=== PATIENT | male | born 1965 | race Caucasian/White ===

== ENCOUNTER 2019-08-26 17:33 | Emergency (ER) | payer MEDICARE, MEDICAID ==
--- OUTSIDE RECORDS SUMMARY | 2019-08-26 18:25 | XMS REPORT | Continuity of Care Document ---
:1965 External Reference #:[id number] Author Name Jesus Santizo MD (transmitted by agent of provider Arianna Staton) Address [address] [place] [id number] Care Team Providers Name Role Phone Mary Alice Cho MD - Adolescent Care Team Information Press Box Custodian Medicine Problems Active Problems Provider Date Dyspnea Marvin Zamorano M.D., [facility], Onset: 09/14/2013 FAS[facility] Conduction disorder of the heart Marvin Zamorano M.D., [facility], Onset: 2014 FASNC Difficulty breathing Marvin Zamorano M.D., [facility], Onset: 01/09/2015 FASNC Chest pain Marvin Zamorano M.D., [facility], Onset: 01/11/2016 FASNC Obstructive sleep apnea syndrome Stephanie Egan MD Onset: 12/13/2016 Obesity Stephanie Egan MD Onset: 12/13/2016 Malaise and fatigue Marvin Zamorano M.D., [facility], Onset: 03/04/2017 FASNC Pain in calf Kisha Holder DNP, RN, Onset: 01/20/2018 [facility] Atherosclerotic heart disease of Marvin Zamorano M.D., [facility], Onset: 2017 [place] coronary artery without angina FASNC pectoris Social History Type Date Description Comments Sex Unknown Tobacco Use Start: Unknown Never Smoked Cigarettes Smoking Status Reviewed: 07/09/19 Never Smoked Cigarettes ETOH Use Denies alcohol use Tobacco Use Start: Unknown Patient has never smoked Recreational Drug Use Denies Drug Use Exercise Type/Frequency Exercises regularly Exercise Type/Frequency Walks daily Dogs Allergies, Adverse Reactions, Alerts Active Allergies Reaction Severity Comments Date Penicillin Hives 09/14/2013 Iodine rash 09/14/2013 Testosterone Hives 05/12/2019 Keflex Hives 05/12/2019 Medications Active Medications SIG Qnty Indications Ordering Provider Date Aspir-81 1 by mouth every Marvin Zamorano, 01/09/2015 81mg Tablets day Am ZACK Proctor FASNC DR Fenofibrate 1 po qd 90tabs Mary Alice Cho, 54mg MD Tablets Simvastatin 1 po qhs 90tabs Mary Alice Cho, 10mg MD Tablets Vit C 1 tablet po daily Unknown 500mg Am Metformin HCL 1 po once daily 60tabs Mary Alice Cho, 500mg with meal MD Tablets Cpap as directed used Unknown Device during the night for severe sleep apnea Atenolol 1/2 tab by mouth Mary Alice Cho, 50mg Tablets every day Tamsulosin HCL 1 daily Dom River, 0.4mg MD Capsules Lisinopril 1 by mouth every Unknown 20mg Tablets day Vitamin B Complex 1 by mouth every Unknown day Tablets Freestyle Lite Test test blood sugar Unknown 3 times daily and Strips as needed Freestyle Lancets 2 times daily and Unknown Misc as needed Medications Administered in Office Medication SIG Qnty Indications Ordering Provider Date Depomedrol 40MG Bernadette Yip PA-C 01/29/2017 Injection Technetium TC 99M Marvin Zamorano M.D., 10/07/2016 Tetrofosmin, Per Unit Dose ROMULO DIXON Up To 40 Millicuries Injection Depomedrol 40MG Anibal Nguyen M.D. 08/05/2016 Injection Depomedrol 40MG Anibal Nguyen M.D. 04/17/2016 Injection Depomedrol 40MG Anibal Nguyen M.D. 12/13/2015 Injection Technetium TC 99M Marvin Zamorano M.D., 01/02/2015 Tetrofosmin, Per Unit Dose ROMULO DIXON Up To 40 Millicuries Injection Immunizations Description No Information Available Vital Signs Date Vital Result Comment 07/09/2019 9:26am Height 68 inches 5'8" Weight 225.00 lb w/o shoes Heart Rate 73 /min BP Systolic Sitting 139 mmHg BP Diastolic Sitting 91 mmHg BMI (Body Mass Index) 34.2 kg/m2 05/12/2019 9:39am Height 68 inches 5'8" Weight 224.00 lb with shoes Heart Rate 62 /min BP Systolic Sitting 112 mmHg lue reg cuff BP Diastolic Sitting 64 mmHg lue reg cuff BP Systolic Standing 112 mmHg lue reg cuff BP Diastolic Standing 62 mmHg lue reg cuff Respiratory Rate 12 /min BMI (Body Mass Index) 34.1 kg/m2 Ejection Fraction 55-60% echo 09/24/16 Results Description No Information Available Procedures Date Code Description Status 02/02/2019 11849 EEG Recording Awake & Asleep Completed Medical Devices Description No Information Available Encounters Type Date Location Provider Dx Diagnosis Office Visit 05/12/2019 [facility] Marvin Nogueira I25.10 Athscl heart 10:00a Of Kareem Zamorano M.D., disease of [place] FAC, FASNC coronary artery w/o ang pctrs Office Visit 05/11/2019 [facility] Kisha Holder, G47.33 Obstructive sleep 10:00a [facility], ASSISTANT PROFESSOR OF ART- apnea (adult) [facility] (pediatric) Z72.821 Inadequate sleep hygiene Office Visit 02/16/2019 [facility]monology And Kisha G47.33 Obstructive sleep 9:45a [facility] Holder, CB, apnea (adult) [facility] ASSISTANT PROFESSOR OF ART-ONEL (pediatric) Z72.821 Inadequate sleep hygiene R53.83 Other fatigue Assessments Date Code Description Provider 07/09/2019 E29.1 Testicular hypofunction Jesus Santizo MD 07/09/2019 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 Jesus Santizo MD 07/09/2019 Z68.34 Body mass index (BMI) 34.0-34.9, Jesus Santizo MD adult 05/12/2019 I25.10 Atherosclerotic heart disease of Marvin Zamorano M.D., FACC, [place] coronary artery with FASNC 05/11/2019 G47.33 Obstructive sleep apnea (adult) Kisha Holder DNP, RN, (pediatric) MIS 05/11/2019 Z72.821 Inadequate sleep hygiene Kisha Holder DNP, RN, ASSISTANT PROFESSOR OF ART- 02/16/2019 G47.33 Obstructive sleep apnea (adult) Kisha Holder DNP RN, (pediatric) ASSISTANT PROFESSOR OF ART-ONEL 02/16/2019 Z72.821 Inadequate sleep hygiene Kisha Holder DNP, RN, ASSISTANT PROFESSOR OF ART-BC 02/16/2019 R53.83 Other fatigue Kisha Holder DNP, RN, ASSISTANT PROFESSOR OF ART-ONEL 02/02/2019 R53.83 Other fatigue Waldo Xie M.D. Plan of Treatment Future Appointment(s):08/10/2019 9:15 am - Kisha Holder DNP, RN, [facility]- at [facility]07/09/2019 - Jesus Santizo MDE29.1 Testicular hypofunctionInstructions:1. Do not use testosterone in the future. 2. Collect urine for 24 hours and return to lab. 3. Returnto lab at 8AM for fasting blood tests. 4. No need for further evaluation if the urine and blood tests are normal.L90.6 Striae adctluacrnE30.34 Body mass index (BMI) 34.0-34.9, adult Functional Status Description No Information Available Mental Status Description No Information Available Referrals Description No Information Available
--- OUTSIDE RECORDS SUMMARY | 2019-08-26 18:25 | XMS REPORT | Summary of Care ---
:1965 Author Organization [facility] Address [address] [place] [address] Care Team Providers Name Role Phone Mary Alice Cho MD Primary Care Provider Reason for Visit Reason Comments Procedure fusion bx Encounter Details Date Type Department Care Team Description 08/26/2019 Procedure visit [facility] Kike Brown, [facility] [address] [facility] [address] [place], [place] [address] [id number] [place] [address] [phone] Allergies Active Allergy Reactions Severity Noted Date Comments Iodine-Methyl Salicylate Rash Low 08/26/2019 Penicillins Rash Low 08/26/2019 documented as of this encounter (statuses as of 08/26/2019) Medications Medication Sig Dispensed Refills Start Date End Date Status Vitamin C 500 MG Oral Take 500 mg by 0 Active Tablet (ASCORBIC ACID) mouth Aspirin 81 MG Oral Chew 81 mg by 0 Active Tablet Chewable Mouth Atenolol 25 MG Oral Take 25 mg by 0 Active Tablet (TENORMIN) mouth busPIRone HCl 10 MG Take 10 mg by 0 Active Oral Tablet (BUSPAR) mouth Doxycycline Hyclate TAKE TWO CAPSULES 0 08/19/2019 Active 100 MG Oral Capsule BY MOUTH A (VIBRAMYCIN) SINGLE DOSE Fenofibrate 40 MG Oral Take by mouth 0 Active Tablet Furosemide 20 MG Oral 0 08/03/2019 Active Tablet (LASIX) Lisinopril 10 MG Oral 0 11/24/2018 Active Tablet (PRINIVIL,ZESTRIL) metFORMIN HCl 500 MG 0 10/30/2012 Active Oral Tablet (GLUCOPHAGE) Simvastatin 10 MG Oral 0 08/28/2012 Active Tablet (ZOCOR) Tamsulosin HCl 0.4 MG Take 0.4 mg by 3 06/17/2019 Active Oral Capsule (FLOMAX) mouth daily Vitamin B-12 100 MCG Take 50 mcg by 0 Active Oral Tablet mouth daily (CYANOCOBALAMIN) Hospital, Clinic, or Ordered Dose Route Frequency Start Date End Date Status Other Facility Administered Medication lidocaine 20 mL UR Once 08/26/2019 08/26/2019 Ended (XYLOCAINE) 2 % urojet 20 mL lidocaine 10 mL INFILTRATION Once 08/26/2019 08/26/2019 Ended (XYLOCAINE) 1 % injection 10 mL gentamicin 80 mg IM Once 08/26/2019 08/26/2019 Ended (GARAMYCIN) injection 80 mg documented as of this encounter (statuses as of 08/26/2019) Active Problems Problem Noted Date Kidney stone Elevated PSA documented as of this encounter (statuses as of 08/26/2019) Social History Tobacco Use Types Packs/Day Years Used Date Never Smoker 0 Smokeless Tobacco: Never Used Alcohol Use Drinks/Week oz/Week Comments Never Alcohol Habits Answer Date Recorded How often do you have a drink containing alcohol? Never 08/26/2019 How many drinks containing alcohol do you have on a typical Not asked day when you are drinking? How often do you have six or more drinks on one occasion? Not asked Sex Assigned at Date Recorded Not on file Job Start Date Occupation Industry Not on file Not on file Not on file Travel History Travel Start Travel End No recent travel history available. documented as of this encounter Last Filed Vital Signs Not on filedocumented in this encounter Patient Instructions Patient InstructionsSharon Amato RN - 08/26/2019 1:00 PM ESTPatient Discharge Instructions for TRUS Biopsy of the prostate Joao You may experience slight bleeding, bleeding with urination or blood in your semen after the biopsy. Blood may be noted in your semen for a few months. You may have some discomfort after the biopsy. This discomfort should decrease by taking Acetaminophen (Tylenol) 325 mg. Take 2 tablets by mouth every 4 hours as needed for discomfort or pain. What should I do? * Rest at home this evening. * Take the antibiotic prescribed for you. * Drink 2 quarts of non alcoholic beverages for 24 hours or until your urine is clear. * Continue your regular diet * Resume your normal medications, except: Do not resume blood thinners for 3 days after the biopsy such as warfarin (Coumadin), Lovenox, or aspirin, Bufferin , Anacin or Excedrin. Refrain from takingnon steroidal medications such as Motrin, Advil, Nuprin, Naprosyn, Aleve or Celebrex for 3 days after the procedure. * No strenuous activity or heavy lifting for 3 days. Activities include: jogging, bowling, tennis, golf, cycling, racquetball, lawn mowing or snow shoveling. * Abstain from sexual activity for 3 days (72 hours) * Do Not strain to move your bowels or use suppositories for 48 hours. Please call the Urology office at [phone] (option 3), to speak to a nurse if: * You have severe pain not controlled by Acetaminophen (Tylenol) * You have persistent passage of blood in your urine or bowel movements. * You develop fever of 100 degrees F or higher or shaking/chills. * You have any difficulty urinating, such as decreased slow urinary stream, burning, frequency, urgency, hesitancy, or the inability to urinate. Returning to work, before you leave today please discuss with the Any restrictions you may have,as each case is individualized. * In case of emergency, immediately go to your nearest Emergency Room * Make sure to follow up in the Urology clinic as you were directed * We ask that you bring a family member with you for the results. Joao verbalized understanding of all discharge instructions Your provider for this treatment was Sharon Amato RN If you have any questions please do not hesitate to call us! Reviewed - 03/2018 documented in this encounter Progress Notes Kike Brown MD - 08/26/2019 1:00 PM ESTProcedure: MRI/Ultrasound fusion transrectal ultrasound prostate biopsy Preoperative diagnosis: Elevated PSA, prior negative biopsy Postoperative diagnosis: Elevated PSA, prior negative biopsy Surgeon: Dr. Brown Anesthesia: 10 ml of 1% lidocaine solution Specimen: Biopsy cores submitted to pathology Procedure description: After informed consent was obtained the patient was brought into the procedure. Periprocedural antibiotics were given. He was placed left side down on the biopsy table in the lateral decubitus position. All pressure points were padded. Lidocaine jelly was applied transrectally. The ultrasound probe was placed in the rectum. There were no areas of calcifications noted. There were no other abnormalities. The ultrasound probe was then positioned to image prostate in the axial plane sweeping from the seminal vesicles to thebase, mid, and apical portions of the prostate. This rendered a three-dimensional image that was coregistered with the BracletNaGoojet prostate biopsy system. Volume: 78.8 cc At this point a periprosthetic block was performed using a 22-gauge spinal needle, ultrasound guidance, and 1% lidocaine. 5mL were injected into the right side and 5 mL on the left side. Using an 18-gauge biopsy gun a prostate needle core biopsy was taken and labeled in the axial and sagittal planefrom 3 lesions in the 3 corresponding to areas suspicious on magnetic resonance imaging. These werelabeled MR Target 1-3 respectively. (two of these were read here, and one was NIH reviewed). A 12-core systematic sample was then taken from the following locations: Right base lateral, right base medial, right midlateral, right midmedial, right apex lateral, right apex medial, left base lateral, left base medial, left midlateral , left midmedial, left apex lateral, left apex medial. There was minimal bleeding. All specimens were sent to the pathology. The probe was removed. The patient tolerated the procedurewell. documented in this encounter Plan of Treatment Health Maintenance Due Date Last Done Comments MMR Vaccines (1 of - Standard 1966 series) Pneumococcal Vaccine: Pediatrics 1971 (0 to 5 Years) and At-Risk Patients (6 to 64 Years) (1 of 3 - PCV13) DTaP,Tdap,and Td Vaccines ( - 1972 Tdap) HIV Screening 1978 Hepatitis B Vaccines (1 of 3 - 1984 Risk 3-dose series) Colon Cancer Screening 10 yrs 2015 Influenza Vaccine 07/20/2019 Pneumococcal Vaccine: 65+ Years (1 2030 of 2 - PCV13) HIB Vaccines Aged Out No longer eligible based on patient's age to complete this topic Hepatitis A Vaccines Aged Out No longer eligible based on patient's age to complete this topic IPV Vaccines Aged Out No longer eligible based on patient's age to complete this topic Varicella Vaccines Aged Out No longer eligible based on patient's age to complete this topic documented as of this encounter Results Not on filedocumented in this encounter Visit Diagnoses Diagnosis Elevated PSA - Primary Elevated prostate specific antigen (PSA) documented in this encounter Administered Medications Medication Order MAR Action Action Date Dose Rate Site gentamicin (GARAMYCIN) injection Given 08/26/2019 12:48 PM EST 80 mg 80 mg 80 mg, Intramuscular, Once, Christi 08/26/19 at 1230, For 1 dose lidocaine (XYLOCAINE) 1 % injection 10 mL Given 08/26/2019 1:24 PM EST 10 mLs 10 mL, Infiltration, Once, Christi 08/26/19 at 1230, For 1 dose lidocaine (XYLOCAINE) 2 % urojet 20 mL Given 08/26/2019 12:49 PM EST 20 mLs 20 mL, Urethral, Once, Christi 08/26/19 at 1230, For 1 dose documented in this encounter
--- NOTE | 2019-08-26 20:39 | ED ---
GI/ HPI - HPI Summary HPI Summary: The patient is a 53 y/o M presenting to [facility] accompanied by with a chief complaint of rectal bleeding with BMs today starting after 1330. He reports that he was just discharged from [facility] urology after having 18 biopsies of his prostate following an elevated PSA. Since being discharged, he has had five BMs with bleeding from the rectum. He additionally c/o nausea which is aggravated with passing stool. His symptoms are now rated 10/10 in severity. He notes that he had a SBO recently. He is currently concerned for an infection from the biopsies. He states that he also has a tick on the right upper arm which he must have gotten some time today after being discharged. His urologist at [facility] is Dr. Brown, and his urologist in [place] is Dr. River. PMHx: DM, cardiomegaly, CAD, HTN, HLD. Nonsmoker, no EtOH, no substance use. Medications reviewed. Allergies noted. - History of Current Complaint Chief Complaint: EDRectalPain Time Seen by Provider: 08/26/19 20:22 Stated Complaint: RECTUM BLEEDING PER PT Hx Obtained From: Patient Onset/Duration: Started Hours Ago - at 1330, Still Present Timing: Lasting Hours Severity: Moderate Current Severity: Severe Pain Intensity: 10 Location of Pain: Rectal Associated Signs and Symptoms: Positive: Nausea - Allergy/Home Medications Allergies/Adverse Reactions: Allergies Allergy/AdvReac Type Severity Reaction Status Date / Time testosterone Allergy Hives Verified 08/26/19 20:21 iodine AdvReac Rash Verified 08/26/19 17:38 Penicillins AdvReac GI Upset Verified 08/26/19 17:38 Home Medications: Home Medications Acetaminophen [Acetaminophen Extra Strength] 1,000 mg PO Q6HR PRN 08/26/19 [ History Confirmed 08/26/19] Atenolol TAB* [Tenormin TAB* 50 MG] 25 mg PO DAILY 08/26/19 [History Confirmed 08/26/19] Fenofibrate [Tricor] 54 mg PO DAILY WITH MEAL 08/26/19 [History Confirmed ] Furosemide TAB* [Lasix TAB*] 20 mg PO DAILY 08/26/19 [History Confirmed 08/26/19 ] Lisinopril TAB* [Prinivil TAB*] 20 mg PO DAILY 08/26/19 [History Confirmed 08/26] Simvastatin TAB(NF) [Zocor(NF)] 10 mg PO DAILY 08/26/19 [History Confirmed 08/26] Tamsulosin CAP* [Flomax CAP*] 0.4 mg PO DAILY 08/26/19 [History Confirmed ] PMH/Surg Hx/FS Hx/Imm Hx Endocrine/Hematology History: Reports: Hx Diabetes - TYPE II- ON ORAL MEDICATION FOR Cardiovascular History: Reports: Hx Cardiomegaly - DR. RODRIGUES FOLLOWS, Hx Coronary Artery Disease, Hx Hypercholesterolemia, Hx Hypertension - ON MEDICATION FOR Denies: Hx Pacemaker/ICD Respiratory History: Reports: Hx Sleep Apnea History: Denies: Hx Renal Disease Musculoskeletal History: Reports: Hx Arthritis - BACK Sensory History: Reports: Hx Contacts or Glasses - GLASSES Denies: Hx Hearing Aid Opthamlomology History: Reports: Hx Contacts or Glasses - GLASSES Psychiatric History: Reports: Hx Anxiety - PRN MEDICATION FOR Denies: Hx Panic Disorder - Surgical History Surgical History: Yes Surgery Procedure, Year, and Place: nose operation. tonsils and addenoids. CARPAL TUNNEL LEFT WRIST. CYSTS REMOVED FROM BACK OF NECK, FYQMETCG-9-9 YEARS AGO-[facility]. RIGHT KNEE Hx Anesthesia Reactions: Yes - UNSURE- BUT STATES HAD TO STAY LONGER - Immunization History Date of Influenza Vaccine: 07/2019 Immunizations Up to Date: Yes Infectious Disease History: No Infectious Disease History: Denies: Hx Clostridium Difficile, Hx Hepatitis, Hx Human Immunodeficiency Virus (HIV), Hx of Known/Suspected MRSA, Hx Shingles, Hx Tuberculosis, Hx Known/ Suspected VRE, Hx Known/Suspected VRSA, History Other Infectious Disease, Traveled Outside the [place] in Last 30 Days - Family History Known Family History: Positive: Hypertension - Social History Alcohol Use: None Hx Substance Use: No Substance Use Type: Reports: None Hx Tobacco Use: No Smoking Status (MU): Never Smoked Tobacco Review of Systems Positive: Nausea, Other - rectal bleeding Positive: Other - tick on right arm All Other Systems Reviewed And Are Negative: Yes Physical Exam - Summary Physical Exam Summary: Constitutional: Well-developed, Well-nourished, Alert. (-) Distressed Skin: Tick to right upper arm that I pulled out, Warm, Dry HENT: Normocephalic; Atraumatic Eyes: Conjunctiva normal Neck: Musculoskeletal ROM normal neck. (-) JVD, (-) Stridor, (-) Nuchal rigidity Cardio: Rhythm regular, rate normal, Heart sounds normal; Intact distal pulses; Radial pulses are 2+ and symmetric. (-) Murmur Pulmonary/Chest wall: Effort normal. (-) Respiratory distress, (-) Wheezes, (-) Rales Abd: Soft, (-) tenderness, (-) Distension, (-) Guarding, (-) Rebound Musculoskeletal: (-) Edema Neuro: Alert, Oriented x3 Psych: Mood and affect Normal Triage Information Reviewed: Yes Vital Signs On Initial Exam: Initial Vitals Temp Pulse Resp BP Pulse Ox 98.1 F 70 18 172/87 99 08/26/19 17:35 08/26/19 17:35 08/26/19 17:35 08/26/19 17:35 08/26/19 17:35 Vital Signs Reviewed: Yes Procedures - Sedation Patient Received Moderate/Deep Sedation with Procedure: No Diagnostics - Vital Signs Vital Signs Temp Pulse Resp BP Pulse Ox 08/26/19 17:35 98.1 F 70 18 172/87 99 - Laboratory Result Diagrams: 08/26/19 21:36 08/26/19 21:36 Lab Statement: Any lab studies that have been ordered have been reviewed, and results considered in the medical decision making process. - Radiology Abdominal XR Radiology Interpretation Completed By: ED Physician Summary of Radiographic Findings: No acute process. ED physician has reviewed and interpreted this imaging report. Pending official read. Re-Evaluation - Re-Evaluation First Eval Re-Evaluation Time: 21:45 Change: Unchanged Comment: We discussed results so far. Will send UA. No recurrent episodes of bleeding. GIGU Course/Dx - Course Course Of Treatment: 53-year-old male with a history of prostate biopsy earlier today presents with concern for rectal bleeding. - He states rectal bleeding has stopped, he was concerned so his urologist told him to come to the ED. Hemoglobin stable, no signs of infection. We'll send urine for culture patient artery on antibiotics. - Given recent procedure w concern for infection and lack of symptoms on my examination, rectal exam deferred. - given zofran for nausea which is likely secondary to anesthesia. Patient states he thought he had had a bowel obstruction one week ago (?gas bubble at [place]), has no evidence at this exam, or history. KUB unremarkable. - Diagnoses Provider Diagnoses: Rectal bleeding - Physician Notifications Discussed Care Of Patient With: Astrid Ravi - urology, [facility] Time Discussed With Above Provider: 20:40 Instructed by Provider To: Other - I discussed the patient's case with Dr. Ravi, and she recommends a CBC, UA, and continue with abx. Discharge ED - Sign-Out/Discharge Documenting (check all that apply): Patient Departure - Patient will be discharged home. - Discharge Plan Condition: Stable Disposition: HOME Referrals: Evette Rodgers DO [Primary Care Provider] - Dom River MD [Medical Doctor] - (call and let him know you were here) Additional Instructions: You were seen in the emergency department for rectal bleeding. Your hemoglobin was stable. If any studies were not completed at the time of discharge you will be called with the relevant results. Please follow up with your primary care doctor in the next 2-3 days and return to the emergency department for worsening pain, bleeding, fevers or concerning symptoms. It was a pleasure taking care of you today. - Billing Disposition and Condition Condition: STABLE Disposition: Home - Attestation Statements Document Initiated by Jim: Yes Documenting Scribe: Cher Patel Provider For Whom Jim is Documenting (Include Credential): Dr. Evgeny Vazquez MD Scribe Attestation: Cher Sanderson scribed for Dr. Evgeny Vazquez MD on 08/26/19 at 2218. Scribe Documentation Reviewed: Yes Provider Attestation: The documentation as recorded by the Cher lamb accurately reflects the service I personally performed and the decisions made by me, Dr. Evgeny Vazquez MD Status of Scribsyl Document: Viewed
[2019-08-26 21:41] LABS: ABS Eosinophils 0.2 10^3/ul (0-0.6); ABS Monocytes 0.7 10^3/ul (0-0.8); ABS Neutrophils 7.4 10^3/ul (1.5-7.7); Eosinophil % 1.8 %; Hematocrit 42 % (42-52); Hemoglobin 14.3 g/dL (14.0-18.0); Lymphocyte % 19.3 %; Mean Corpuscular HGB Conc 34 g/dL (31-36); Mean Corpuscular Hemoglobin 29 pg (27-31); Mean Corpuscular Volume 84 fL (80-94); Mean Platelet Volume 7.6 fL (7.4-10.4); Platelet Count 203 10^3/uL (150-450); Red Blood Count 4.99 10^6 /uL (4.18-5.48); Red Cell Distribution Width 15 % (10-15); White Blood Count 10.4 10^3/uL (3.5-10.8)
[2019-08-26 21:57] LABS: Albumin 4.1 g/dL (3.2-5.2); Albumin/Globulin Ratio 1.6 (1-3); BUN/Creatinine Ratio 16.3 (8-20); Calcium 9.2 mg/dL (8.6-10.3); EGFR African American 112.6 (>60); Globulin 2.5 g/dL (2-4); Potassium 4.1 mmol/L (3.5-5.0); Total Bilirubin 0.3 mg/dL (0.2-1.0); Total Protein 6.6 g/dL (6.4-8.9)
[2019-08-26] MEDS ORDERED: Ondansetron ODT TAB* 4 MG PO ONE (22:08)
[2019-08-26 22:25] LABS: Urine Appearance Clear; Urine Bacteria Absent (Absent); Urine Bilirubin Negative (Negative); Urine Blood 2+ (Negative); Urine Color Yellow; Urine Glucose Negative (Negative); Urine Ketones Negative (Negative); Urine Nitrite Negative (Negative); Urine Protein Negative (Negative); Urine Red Blood Cell 3+(>10/hpf) (Absent); Urine Specific Gravity 1.021 (1.010-1.030); Urine Urobilinogen Negative (Negative); Urine White Blood Cell Absent (Absent)
[2019-08-26 22:34] VITALS: BP 143/87
== END 2019-08-26 22:44 | disposition home or self-care (01) ==
LOC: ED 17:33
DX: K62.5 Hemorrhage of anus and rectum (principal); E11.9 Type 2 diabetes mellitus without complications; I25.10 Atherosclerotic heart disease of native coronary artery without angina pectoris; E78.00 Pure hypercholesterolemia, unspecified; I10 Essential (primary) hypertension; F41.9 Anxiety disorder, unspecified; Z79.84 Long term (current) use of oral hypoglycemic drugs; Z79.899 Other long term (current) drug therapy; Z88.0 Allergy status to penicillin; Z88.8 Allergy status to other drugs, medicaments and biological substances; Z91.041 Radiographic dye allergy status
CPT/HCPCS: 36415; 74018; 80053; 81003; 81015; 85025; 99283; A9270-GY

== ENCOUNTER 2021-10-16 05:50 | Observation (INO) ==
[2021-10-16] MEDS ORDERED: Lactated Ringers 1000 ml BAG 1,000 ML IV SCH (06:00)
[2021-10-16] MEDS ORDERED: Buffered Lidocaine 1% SYRIN 1 ml INTRADERM ONE (06:00)
[2021-10-16] MEDS ORDERED: Clindamycin 900 MG/D5W BAG 900 MG/50 ML BAG IVPB ONE (06:20)
[2021-10-16] MEDS ORDERED: Tranexamic Acid 1,000 MG/10 ML SDV ONE ×2 (07:05→07:41)
[2021-10-16] MEDS ORDERED: Bupivacaine 0.25% SDV 30 ML ONE (07:06)
[2021-10-16] MEDS ORDERED: Lidocaine 1.5% EPI 1:200,000 30 ML SDV ONE (07:06)
[2021-10-16] MEDS ORDERED: Propofol 10 MG/ML 20 ML BTL ONE ×2 (07:23→10:08)
[2021-10-16] MEDS ORDERED: HYDROmorphone 0.5 MG/0.5 ML SYRINGE ONE ×2 (07:23→08:49)
[2021-10-16] MEDS ORDERED: Succinylcholine 200 mg VIAL 20 mg/ml 10 ml VIAL (200 mg) ONE (07:23)
[2021-10-16] MEDS ORDERED: Lidocaine 2% PF 5 ML VIAL ONE (07:23)
[2021-10-16] MEDS ORDERED: Rocuronium 50 mg VIAL 10 mg/ml 5 ml VIAL (50 mg) ONE (07:23)
[2021-10-16] MEDS ORDERED: Midazolam 2 mg/2 ml VIAL 1 mg/ml 2 ml VIAL (2 mg) ONE (07:24)
[2021-10-16] MEDS ORDERED: Phenylephrine 40 mcg/mL 10mL (400mcg) SYRINGE ONE (07:26)
[2021-10-16] MEDS ORDERED: BUPIVACAINE **LIPOSOME/PF 13.3 MG/ML (266MG/ 20ML) VIAL (RESTRICTED) INFIL ONE (08:00)
[2021-10-16] MEDS ORDERED: Bupivacaine 0.25% SDV PF 10 ML VIAL INJ ONE (08:32)
[2021-10-16] MEDS ORDERED: fentaNYL 100 mcg/2 ml 50 MCG/ML VIAL IV PRN (09:06)
[2021-10-16] MEDS ORDERED: Ondansetron 4 mg VIAL 2 MG/ML 2 ml VIAL IV PRN ×2 (09:06→11:09)
[2021-10-16] MEDS ORDERED: Naloxone 0.4 mg VIAL 0.4 mg/ml 1 ml VIAL IV PRN (09:06)
[2021-10-16] MEDS ORDERED: Acetaminophen IV 1 GM/100ML 100 ML IV ONE ×2 (09:06→10:01)
[2021-10-16] MEDS ORDERED: DiMENhydriNATE IV 50 mg/ml 1 ml VIAL IV PUSH PRN (09:06)
[2021-10-16] MEDS ORDERED: Ondansetron 4 mg VIAL 2 MG/ML 2 ml VIAL ONE (09:51)
[2021-10-16] MEDS ORDERED: Dexamethasone IV 4 MG/ML VIAL 1 ml VIAL ONE (09:51)
[2021-10-16] MEDS ORDERED: Sevoflurane BOTTLE ONE (10:01)
[2021-10-16] MEDS ORDERED: Levalbuterol HFA INHALER MDI ONE (10:30)
[2021-10-16] MEDS ORDERED: diPHENhydraMINE 25 mg TAB PO PRN (11:09)
[2021-10-16] MEDS ORDERED: Magnesium Hydroxide LIQ 30 ML UDC PO PRN (11:09)
[2021-10-16] MEDS ORDERED: Ondansetron ODT 4 mg TAB 4 MG TAB PO PRN (11:09)
[2021-10-16] MEDS ORDERED: Lactulose 30 ml UDC PO PRN (11:09)
[2021-10-16] MEDS ORDERED: diPHENhydraMINE IV 50 MG/ML 1 ml VIAL (BENADRYL) IV PRN (11:09)
[2021-10-16] MEDS ORDERED: Morphine 2 MG/ML SYRINGE IV PRN (11:09)
[2021-10-16] MEDS ORDERED: HYDROmorphone 1 MG/1 ML SYRINGE ONE (12:03)
[2021-10-16] MEDS: HYDROmorphone 1 MG/1 ML SYRINGE IV PRN ×2 (12:05→12:10)
[2021-10-16] MEDS ORDERED: Dextrose 50% Syringe 50 ml 25 GM/50 ML SYRINGE IV PUSH PRN (13:30)
[2021-10-16] MEDS: Lactated Ringers 1000 ml BAG 1,000 ML IV SCH (13:55)
[2021-10-16] MEDS: Clindamycin 600 MG/D5W BAG 600 MG/50 ML BAG IV SCH (16:41)
[2021-10-16] MEDS: Magnesium Hydroxide LIQ 30 ML UDC PO SCH (20:55)
[2021-10-16] MEDS ORDERED: SitaGLIPtin 100 mg TAB (NF) PO SCH (21:00)
[2021-10-17] MEDS: Clindamycin 600 MG/D5W BAG 600 MG/50 ML BAG IV SCH ×2 (00:30→09:08)
[2021-10-17] MEDS: Lactated Ringers 1000 ml BAG 1,000 ML IV SCH (00:36)
[2021-10-17 06:53] LABS: Hematocrit 37 % (42-52); Hemoglobin 12.3 g/dL (14.0-18.0); Mean Platelet Volume 8.4 fL (7.4-10.4); Platelet Count 205 10^3/uL (150-450)
[2021-10-17 07:14] LABS: Calcium 8.8 mg/dL (8.6-10.3); Potassium 4.2 mmol/L (3.5-5.0); eGFR CKD-EPI 78.4 (>60)
[2021-10-17] MEDS ORDERED: Vitamin THERAPEUTIC TAB PO SCH (09:00)
[2021-10-17] MEDS: Magnesium Hydroxide LIQ 30 ML UDC PO SCH (09:05)
[2021-10-17 13:07] VITALS: BP 112/62
== END 2021-10-17 14:15 | disposition home or self-care (01) ==
LOC: OR 05:50 → SSU 05:50
PROVIDERS: ADMIT Orthopaedic Surgery Sports Medicine; ATTEND Orthopaedic Surgery Sports Medicine